=== PATIENT | female | born 2000 | race Two or more races ===

== ENCOUNTER 2023-06-08 13:46 | Emergency (ER) | payer SELFPAY ==
[2023-06-08 15:09] LABS: CORONAVIRUS COVID-19 NAA NEGATIVE (NEGATIVE); INFLUENZA A NAA NEGATIVE (NEGATIVE); INFLUENZA B NAA NEGATIVE (NEGATIVE)
[2023-06-08] MEDS ORDERED: ALPRAZolam 0.5 MG Tab PO ONE (15:14)
[2023-06-08] MEDS ORDERED: Ketorolac 30 MG/ML SDV IM ONE (15:30)
== END 2023-06-08 15:41 | disposition home or self-care (01) ==
LOC: MW.ED 13:46
DX: F41.9 Anxiety disorder, unspecified (principal)
CPT/HCPCS: 0240U; 96372; 99283; A9270; J1885

== ENCOUNTER 2023-07-14 15:18 | Emergency (ER) | payer SELFPAY ==
[2023-07-14] MEDS ORDERED: Sodium Chloride 0.9% 1,000 ML IV ONE (15:33)
[2023-07-14] MEDS ORDERED: Ketorolac 30 MG/ML SDV IVPUSH ONE (15:33)
[2023-07-14 16:12] LABS: APPEARANCE,URINE CLEAR; BILIRUBIN,URINE NEGATIVE (NEGATIVE); COLOR,URINE YELLOW; GLUCOSE,URINE NEGATIVE (NEGATIVE); KETONES,URINE TRACE mg/dL (NEGATIVE); LEUKOCYTE ESTERASE,URINE NEGATIVE (NEGATIVE); NITRITE,URINE NEGATIVE (NEGATIVE); OCCULT BLOOD,URINE TRACE-INTACT (NEGATIVE); PROTEIN,URINE NEGATIVE (NEGATIVE); UROBILINOGEN,URINE 0.2 EU/dL (<2.0)
[2023-07-14 16:26] LABS: BASOPHILS ABSOLUTE AUTO 0.04 K/uL (0.00-0.20); EOSINOPHILS PERCENT AUTO 2.5 % (0.0-6.0); HEMATOCRIT 41.2 % (37.0-47.0); LYMPHOCYTES ABSOLUTE AUTO 1.46 K/uL (1.00-4.80); LYMPHOCYTES PERCENT AUTO 35.9 % (24.0-44.0); MEAN CORPUSCULAR HEMOGLOBIN 30.8 pg (28.0-32.0); MEAN CORPUSCULAR VOLUME 90.5 fL (83.0-99.0); MEAN PLATELET VOLUME 10.4 fL (9.4-12.3); MONOCYTES ABSOLUTE AUTO 0.28 K/uL (0.00-0.80); MONOCYTES PERCENT AUTO 6.9 % (0.0-8.0); NEUTROPHILS ABSOLUTE AUTO 2.19 K/uL (1.80-7.70); NEUTROPHILS PERCENT AUTO 53.7 % (41.0-71.0); PLATELET COUNT,PLT 205 K/uL (150-400); RED BLOOD CELL COUNT 4.55 M/uL (4.10-5.30); WHITE BLOOD CELL COUNT,WBC 4.07 K/uL (3.9-11.3)
[2023-07-14 16:26] LABS: BACTERIA,URINE FEW (NEGATIVE); EPITHELIAL CELLS,URINE MODERATE (NONE-FEW); RBC,URINE 0-2 (0-2/HPF); WBC,URINE 0-3 (0-5/HPF)
[2023-07-14] MEDS ORDERED: Acetaminophen 500 MG Tab PO ONE (16:29)
[2023-07-14 16:30] LABS: AMPHETAMINES SCREEN, URINE NEGATIVE (CUTOFF=500); BARBITURATE SCREEN,URINE NEGATIVE (CUTOFF=200); BENZODIAZEPINES SCREEN,URINE PRESUMPTIVE POSITIVE (CUTOFF=150); BUPRENORPHINE SCREEN,URINE NEGATIVE (CUTOFF=10); METHADONE SCREEN, URINE NEGATIVE (CUTOFF=200); METHAMPHETAMINES SCREEN, URINE NEGATIVE (CUTOFF=500); OXYCODONE SCREEN,URINE NEGATIVE (CUT0FF=100); PCP SCREEN,URINE NEGATIVE (CUTOFF=25); THC SCREEN,URINE 20 NG/ML NEGATIVE (CUTOFF=50)
[2023-07-14 16:45] LABS: PTT,PARTIAL THROMBOPLSTIN TIME 30.5 SEC (23.9-30.7)
[2023-07-14 16:46] LABS: A/G RATIO 1.5 (0.9-1.6); ALANINE AMINOTRANSFERASE,ALT 33 IU/L (14-63); ALBUMIN 4.4 g/dL (3.4-5.0); ALKALINE PHOSPHATASE 60 U/L (46-116); ASPARTATE AMNIOTRANSFERASE,AST 26 IU/L (15-37); BILIRUBIN TOTAL 0.7 mg/dL (0.2-1.0); BLOOD UREA NITROGEN,BUN 13 mg/dL (7.0-18.0); CHLORIDE,CL 103 mmol/L (98-107); CREATININE 0.8 mg/dL (0.6-1.0); EST CRCL DRUG DOSING (CG) 101.51 mL/min; ETHANOL BLOOD MEDICAL <3 mg/dL; GLUCOSE RANDOM 81 mg/dL (74-106); MAGNESIUM 1.9 mg/dL (1.8-2.4); POTASSIUM,K 3.9 mmol/L (3.5-5.1); PROTEIN TOTAL,TP 7.4 g/dL (6.4-8.2); SODIUM,NA 137 mmol/L (136-145)
[2023-07-14 16:47] LABS: ESTIMATED GFR 105 mL/min (>60)
== END 2023-07-14 18:23 | disposition home or self-care (01) ==
LOC: MW.ED 15:18
DX: S06.0X0A Concussion without loss of consciousness, initial encounter (principal); W01.198A Fall on same level from slipping, tripping and stumbling with subsequent striking against other object, initial encounter
CPT/HCPCS: 36415; 70450; 72125; 72131; 80053; 80305; 80307; 81001; 83735; 84703; 85025; 85610; 85730; 96361; 96374; 99284; A9270; J1885; J7030

== ENCOUNTER 2024-03-13 18:09 | Emergency (ER) | payer MEDICAID | END 2024-03-13 19:29 | disposition left against medical advice (07) | LOC: MW.ED 18:09 | DX: O99.352 Diseases of the nervous system complicating pregnancy, second trimester (principal); G47.00 Insomnia, unspecified; Z3A.27 27 weeks gestation of pregnancy; Z79.899 Other long term (current) drug therapy; Z75.8 Other problems related to medical facilities and other health care | CPT/HCPCS: 99283 ==

== ENCOUNTER 2024-03-13 20:56 | Emergency (ER) | payer MEDICAID | END 2024-03-13 22:00 | disposition home or self-care (01) | LOC: MW.ED 20:56 | DX: O99.350 Diseases of the nervous system complicating pregnancy, unspecified trimester (principal); G47.00 Insomnia, unspecified; Z79.890 Hormone replacement therapy; Z79.899 Other long term (current) drug therapy; Z75.8 Other problems related to medical facilities and other health care; Z3A.00 Weeks of gestation of pregnancy not specified | CPT/HCPCS: 36415; 99284 ==

== ENCOUNTER 2024-06-01 15:49 | Inpatient (IN) | payer MEDICAID ==
[2024-06-01] MEDS ORDERED: Water For Irrigation,Sterile 1,000 ML Container IRR PRN (17:13)
[2024-06-01] MEDS ORDERED: Carboprost Tromethamine 250 MCG/1 mL Vial IM PRN (17:13)
[2024-06-01] MEDS ORDERED: Sodium Chloride 0.9% 2.5 ML Syringe FLUSH PRN (17:13)
[2024-06-01] MEDS ORDERED: Sodium Chloride 0.9% 10 ML Syringe FLUSH PRN (17:13)
[2024-06-01] MEDS ORDERED: Sodium Chloride 0.9% 20 ML SDV IV PRN (17:13)
[2024-06-01] MEDS ORDERED: Lidocaine 1% 50 ML MDV INJECT PRN (17:13)
[2024-06-01] MEDS ORDERED: Methylergonovine 0.2 MG/1 ML Amp IM PRN (17:13)
[2024-06-01] MEDS ORDERED: Terbutaline 1 MG/ML SDV SUBCUT PRN (17:18)
[2024-06-01 18:02] LABS: CREATININE,URINE RAND 89.1 mg/dL; PROTEIN CREATININE RATIO,URINE 0.5
[2024-06-01] MEDS: Sodium Chloride 0.9% 1,000 ML IV SCH (18:03)
[2024-06-01 18:15] LABS: HEMATOCRIT 41.1 % (37.0-47.0); HEMOGLOBIN 13.8 g/dL (12.0-16.0); MEAN CORPUSCULAR HEMOGLOBIN 29.2 pg (28.0-32.0); MEAN CORPUSCULAR HGB CONC 33.6 g/dL (32.0-36.0); MEAN CORPUSCULAR VOLUME 86.9 fL (83.0-99.0); MEAN PLATELET VOLUME 12.3 fL (9.4-12.3); PLATELET COUNT,PLT 201 K/uL (150-400); RED BLOOD CELL COUNT 4.73 M/uL (4.10-5.30); WHITE BLOOD CELL COUNT,WBC 9.67 K/uL (3.9-11.3)
[2024-06-01] MEDS: Misoprostol 25 MCG (1/4 of 100 MCG) Tab VAG PRN (18:17)
[2024-06-01 19:09] LABS: A/G RATIO 0.7 (0.9-1.6); ALBUMIN 2.7 g/dL (3.4-5.0); BILIRUBIN TOTAL 0.1 mg/dL (0.2-1.0); CALCIUM 9.4 mg/dL (8.5-10.1); CARBON DIOXIDE,CO2 21.4 mmol/L (21.0-32.0); CREATININE 0.7 mg/dL (0.6-1.0); EST CRCL DRUG DOSING (CG) 115.01 mL/min; POTASSIUM,K 3.7 mmol/L (3.5-5.1); PROTEIN TOTAL,TP 6.6 g/dL (6.4-8.2); URIC ACID 4.2 mg/dL (2.6-7.2)
[2024-06-02] MEDS: Nalbuphine 10 MG/1 ML Vial IVPUSH ONE (01:37)
[2024-06-02] MEDS: Ondansetron 4 MG/2 ML SDV IVPUSH PRN (01:40)
[2024-06-02] MEDS: Oxytocin/0.9 % Sodium Chloride 30 UNIT/500 ML BAG IV SCH ×2 (02:20→19:47)
[2024-06-02] MEDS: Butorphanol 2 MG/ML SDV IVPUSH PRN (03:47)
[2024-06-02] MEDS ORDERED: hydrOXYzine Pamoate 25 MG Cap ONE (04:58)
[2024-06-02] MEDS: hydrOXYzine Pamoate 25 MG Cap PO ONE (06:45)
[2024-06-02] MEDS: Acetaminophen 500 MG Tab PO PRN (07:09)
[2024-06-02] MEDS ORDERED: Phenylephrine HCl In 0.9% NaCl 1 MG/10 ML Syringe ONE (08:04)
[2024-06-02] MEDS ORDERED: Bupivacaine 0.5% 10 ML SDV ONE (08:04)
[2024-06-02] MEDS ORDERED: Ropivacaine HCl/PF 200 ML ONE (08:04)
[2024-06-02] MEDS: Ropivacaine HCl/PF 400 MG in Premix Bag 1 BAG EPIDUR SCH (08:22)
[2024-06-02] MEDS ORDERED: Phenylephrine HCl In 0.9% NaCl 1 MG/10 ML Syringe IVPUSH PRN (08:32)
[2024-06-02] MEDS ORDERED: ePHEDrine 50 MG/ML SDV IVPUSH PRN (08:32)
[2024-06-02] MEDS ORDERED: dexmedeTOMIDine HCl 200 MCG/2 ML SDV EPIDUR SCH (08:45)
[2024-06-02] MEDS: Cyclobenzaprine 10 MG Tab PO PRN (11:29)
[2024-06-02] MEDS: Promethazine 25 MG/ML SDV IM ONE (16:11)
[2024-06-02] MEDS: Misoprostol 200 MCG Tab PO PRN (19:29)
[2024-06-02] MEDS: Ketorolac 30 MG/ML SDV ONE (19:32)
[2024-06-02] MEDS ORDERED: Tranexamic Acid in NACL,ISO-OS 1,000 MG/100 ML Bag IV ONE (19:35)
[2024-06-02] MEDS ORDERED: LORazepam 2 MG/ML SDV IM ONE (19:41)
[2024-06-02] MEDS: Tranexamic Acid in NACL,ISO-OS 1,000 MG in Premix Bag 1 BAG IV ONE (19:42)
[2024-06-02] MEDS ORDERED: Ketorolac 30 MG/ML SDV IVPUSH ONE (19:42)
[2024-06-02] MEDS ORDERED: LORazepam 2 MG/ML SDV ONE (19:44)
[2024-06-02] MEDS ORDERED: Benzocaine/Menthol 20%-0.5% Spray 78 GM Cannister ONE (19:45)
[2024-06-02] MEDS ORDERED: Witch Hazel Medicated Pads 40/Jar TOP ONE (19:45)
[2024-06-02] MEDS: LORazepam 2 MG/ML SDV IVPUSH PRN (19:49)
[2024-06-02] MEDS ORDERED: Labetalol 100 MG/20 ML MDV IVPUSH ONE (19:59)
[2024-06-02 20:38] LABS: PH,UMBILICAL ARTERIAL 7.284 (7.18-7.38); PH,UMBILICAL VENOUS 7.275 (7.25-7.45)
[2024-06-02] MEDS ORDERED: Benzocaine/Menthol 20%-0.5% Spray 78 GM Cannister TOP PRN (21:25)
[2024-06-02] MEDS ORDERED: Simethicone 80 MG Tab.Chew PO PRN (21:25)
[2024-06-02] MEDS ORDERED: Witch Hazel Medicated Pads 40/Jar TOP PRN (21:25)
[2024-06-02] MEDS ORDERED: Lanolin 100% Cream 7 GM Tube TOP PRN (21:25)
[2024-06-02] MEDS ORDERED: oxyCODONE 5 MG Tab PO PRN (21:25)
[2024-06-03] MEDS: Zolpidem 5 MG Tab PO SCH (00:45)
[2024-06-03] MEDS: Ibuprofen 800 MG Tab PO PRN (06:08)
[2024-06-03 06:42] LABS: HEMATOCRIT 30.5 % (37.0-47.0); HEMOGLOBIN 10.3 g/dL (12.0-16.0); MEAN CORPUSCULAR HEMOGLOBIN 29.7 pg (28.0-32.0); MEAN CORPUSCULAR HGB CONC 33.8 g/dL (32.0-36.0); MEAN CORPUSCULAR VOLUME 87.9 fL (83.0-99.0); MEAN PLATELET VOLUME 12.7 fL (9.4-12.3); PLATELET COUNT,PLT 173 K/uL (150-400); RED BLOOD CELL COUNT 3.47 M/uL (4.10-5.30)
[2024-06-03 07:14] LABS: A/G RATIO 0.7 (0.9-1.6); ALBUMIN 2.1 g/dL (3.4-5.0); BILIRUBIN TOTAL 0.2 mg/dL (0.2-1.0); CALCIUM 7.9 mg/dL (8.5-10.1); CARBON DIOXIDE,CO2 20.9 mmol/L (21.0-32.0); CREATININE 0.8 mg/dL (0.6-1.0); EST CRCL DRUG DOSING (CG) 100.63 mL/min; POTASSIUM,K 3.7 mmol/L (3.5-5.1); PROTEIN TOTAL,TP 5.2 g/dL (6.4-8.2)
[2024-06-03] MEDS: Docusate Sodium 100 MG Cap PO PRN (09:07)
[2024-06-03] MEDS ORDERED: Zolpidem 5 MG Tab PO SCH (21:00)
== END 2024-06-03 21:49 | disposition home or self-care (01) | DRG 806 ==
LOC: MW.OB 15:49 → UNDOADMOB 15:49 → MW.OB 16:49 → OBSVTOIN 06-02 17:21 → MW.OB 06-03 02:40
PROVIDERS: ADMIT Obstetrics & Gynecology; ATTEND Obstetrics & Gynecology
PROC: 10E0XZZ Delivery of Products of Conception, External Approach (ICD-10-PCS; principal; 2024-06-02)
PROC: 0KQM0ZZ Repair Perineum Muscle, Open Approach (ICD-10-PCS; 2024-06-02)
PROC: 10907ZC Drainage of Amniotic Fluid, Therapeutic from Products of Conception, Via Natural or Artificial Opening (ICD-10-PCS; 2024-06-02)
DX: O14.94 Unspecified pre-eclampsia, complicating childbirth (principal); D62 Acute posthemorrhagic anemia; Z37.0 Single live birth; Z3A.37 37 weeks gestation of pregnancy; O99.344 Other mental disorders complicating childbirth; F41.0 Panic disorder [episodic paroxysmal anxiety]; O70.1 Second degree perineal laceration during delivery; O72.1 Other immediate postpartum hemorrhage; O99.284 Endocrine, nutritional and metabolic diseases complicating childbirth; E03.9 Hypothyroidism, unspecified; O90.81 Anemia of the puerperium
CPT/HCPCS: 36415; 51702; 59025; 59409; 80053; 82570; 82803; 84156; 84550; 85027; 86592; 86850; 86900; 86901; A9270-GY; J0595; J0665; J1885; J2060; J2300; J2371; J2405; J2550; J2590; J2795; J3490; J7030

== ENCOUNTER 2024-06-04 23:38 | Emergency (ER) | payer MEDICAID ==
[2024-06-05] MEDS: Ondansetron 4 MG/2 ML SDV IVPUSH ONE (00:20)
[2024-06-05] MEDS: Morphine 4 MG/ML Syringe IVPUSH ONE ×2 (00:20→00:38)
[2024-06-05 02:40] LABS: BASOPHILS ABSOLUTE AUTO 0.04 K/uL (0.00-0.20); BASOPHILS PERCENT AUTO 0.4 % (0.0-1.0); EOSINOPHILS ABSOLUTE AUTO 0.13 K/uL (0.00-0.45); EOSINOPHILS PERCENT AUTO 1.4 % (0.0-6.0); HEMATOCRIT 30.9 % (37.0-47.0); HEMOGLOBIN 9.8 g/dL (12.0-16.0); IMMATURE GRAN ABSOLUTE AUTO 0.07 K/uL (0.00-0.05); IMMATURE GRAN PERCENT AUTO 0.7 % (0.0-0.4); MEAN CORPUSCULAR HEMOGLOBIN 28.6 pg (28.0-32.0); MEAN CORPUSCULAR HGB CONC 31.7 g/dL (32.0-36.0); MEAN CORPUSCULAR VOLUME 90.1 fL (83.0-99.0); MEAN PLATELET VOLUME 11.7 fL (9.4-12.3); MONOCYTES ABSOLUTE AUTO 0.67 K/uL (0.00-0.80); NEUTROPHILS ABSOLUTE AUTO 6.44 K/uL (1.80-7.70); NEUTROPHILS PERCENT AUTO 67.5 % (41.0-71.0); PLATELET COUNT,PLT 194 K/uL (150-400); RED BLOOD CELL COUNT 3.43 M/uL (4.10-5.30); WHITE BLOOD CELL COUNT,WBC 9.55 K/uL (3.9-11.3)
[2024-06-05] MEDS: Ketorolac 30 MG/ML SDV IVPUSH ONE (02:44)
[2024-06-05] MEDS: Acetaminophen/oxyCODONE 325-10 MG Tab PO STA (03:07)
[2024-06-05] MEDS: Lidocaine 2% Viscous Solution 15 ML UD TOP STA (03:07)
== END 2024-06-05 03:50 | disposition home or self-care (01) ==
LOC: MW.ED 23:38
DX: R10.2 Pelvic and perineal pain (principal); E03.9 Hypothyroidism, unspecified; Z79.890 Hormone replacement therapy; Z79.899 Other long term (current) drug therapy
CPT/HCPCS: 36415; 85025; 96374; 96375; 99283; A9270; J1885; J2270; J2405; 99284

== ENCOUNTER 2024-06-13 20:22 | Emergency (ER) | payer MEDICAID ==
[2024-06-13 21:26] LABS: BASOPHILS ABSOLUTE AUTO 0.04 K/uL (0.00-0.20); BASOPHILS PERCENT AUTO 0.4 % (0.0-1.0); EOSINOPHILS ABSOLUTE AUTO 0.06 K/uL (0.00-0.45); EOSINOPHILS PERCENT AUTO 0.6 % (0.0-6.0); HEMOGLOBIN 11.3 g/dL (12.0-16.0); IMMATURE GRAN ABSOLUTE AUTO 0.02 K/uL (0.00-0.05); IMMATURE GRAN PERCENT AUTO 0.2 % (0.0-0.4); LYMPHOCYTES ABSOLUTE AUTO 1.26 K/uL (1.00-4.80); LYMPHOCYTES PERCENT AUTO 12.7 % (24.0-44.0); MEAN CORPUSCULAR HEMOGLOBIN 29.1 pg (28.0-32.0); MEAN CORPUSCULAR HGB CONC 33.2 g/dL (32.0-36.0); MEAN CORPUSCULAR VOLUME 87.6 fL (83.0-99.0); MEAN PLATELET VOLUME 10.5 fL (9.4-12.3); MONOCYTES ABSOLUTE AUTO 0.54 K/uL (0.00-0.80); MONOCYTES PERCENT AUTO 5.5 % (0.0-8.0); NEUTROPHILS ABSOLUTE AUTO 7.97 K/uL (1.80-7.70); NEUTROPHILS PERCENT AUTO 80.6 % (41.0-71.0); PLATELET COUNT,PLT 289 K/uL (150-400); RED BLOOD CELL COUNT 3.88 M/uL (4.10-5.30); WHITE BLOOD CELL COUNT,WBC 9.89 K/uL (3.9-11.3)
[2024-06-13] MEDS: Cyclobenzaprine 10 MG Tab PO ONE (21:31)
[2024-06-13] MEDS: Ketorolac 30 MG/ML SDV IVPUSH ONE (21:32)
[2024-06-13 21:51] LABS: BLOOD UREA NITROGEN,BUN 17 mg/dL (7.0-18.0); CALCIUM 8.9 mg/dL (8.5-10.1); CHLORIDE,CL 103 mmol/L (98-107); CREATININE 0.8 mg/dL (0.6-1.0); GLUCOSE RANDOM 110 mg/dL (74-106); POTASSIUM,K 3.7 mmol/L (3.5-5.1); SODIUM,NA 141 mmol/L (136-145)
[2024-06-13 21:52] LABS: ESTIMATED GFR 105 mL/min (>60)
[2024-06-13] MEDS: Ondansetron 4 MG Tab.DIS PO ONE (22:06)
[2024-06-13 22:50] LABS: GLUCOSE,URINE NEGATIVE (NEGATIVE); KETONES,URINE NEGATIVE (NEGATIVE); LEUKOCYTE ESTERASE,URINE SMALL (NEGATIVE); NITRITE,URINE NEGATIVE (NEGATIVE); OCCULT BLOOD,URINE MODERATE (NEGATIVE); PROTEIN,URINE 30 mg/dL (NEGATIVE); UROBILINOGEN,URINE 0.2 EU/dL (<2.0)
[2024-06-13 22:52] LABS: APPEARANCE,URINE CLOUDY; BILIRUBIN,URINE SMALL (NEGATIVE); COLOR,URINE DARK YELLOW
[2024-06-13 22:53] LABS: BACTERIA,URINE 2+ (NEGATIVE); EPITHELIAL CELLS,URINE FEW (NONE-FEW); RBC,URINE 75-100 (0-2/HPF); WBC,URINE 50-75 (0-5/HPF)
[2024-06-13] MEDS: Morphine 4 MG/ML Syringe IVPUSH ONE (22:57)
[2024-06-13] MEDS: cefTRIAXone 1 GM in Sodium Chloride 0.9% 50 ML IV ONE (23:49)
[2024-06-14] MEDS: Morphine 4 MG/ML Syringe IVPUSH ONE (00:25)
== END 2024-06-14 01:00 | disposition home or self-care (01) ==
LOC: MW.ED 20:22
DX: O86.22 Infection of bladder following delivery (principal); N30.00 Acute cystitis without hematuria; E03.9 Hypothyroidism, unspecified; Z79.890 Hormone replacement therapy; Z79.899 Other long term (current) drug therapy
CPT/HCPCS: 36415; 76830; 76856; 80048; 81001; 85025; 96365; 96375; 96376; 99284; A9270; J0696; J1885; J2270; J3490